=== PATIENT | male | born 1985 | race Caucasian/White ===

== ENCOUNTER → 2021-11-09 | Emergency (ER) | payer SELFPAY ==
--- NOTE | 2021-11-09 00:16 | NUR ---
PATIENT LEFT WITHOUT BEING SEEN, WITH A STEADY GAIT A&OX4 AMBULATORY WITH NON LABORED BREATHING PER EMS.
== END | disposition left against medical advice (07) ==
LOC: ER 00:23
DX: Z53.21 Procedure and treatment not carried out due to patient leaving prior to being seen by health care provider (principal)